=== PATIENT | female | born 1985 | race Caucasian/White ===

== ENCOUNTER → 2020-03-14 | Outpatient (CLI) | payer OTHER ==
[~2020-03-14] MED LIST: BIRTH CONTROL1 EAC1 PO; BUSPAR10 MG PO; CETIRIZINE HYDR10 MG PO; DESYREL100 MG PO; Depakote ER500 MG PO; EFFEXOR75 MG PO; IBUPROFEN; KEFLEX500 MG PO; MOTRIN800 MG PO; NAPROSYN500 MG PO; NEURONTIN400 MG PO; PRILOSEC40 MG PO; TOPIRAMATE50 MG PO; VENLAFAXINE; VISTARIL25 M1 PO; ZANAFLEX4 M1 PO; ZANTAC 150150 MG PO
== END | disposition home or self-care (01) ==
LOC: US 16:38
DX: Z33.1 Pregnant state, incidental (principal); Z3A.10 10 weeks gestation of pregnancy

== ENCOUNTER → 2020-03-26 | Outpatient (CLI) | payer OTHER | END | disposition home or self-care (01) | LOC: US 15:49 | DX: Z34.82 Encounter for supervision of other normal pregnancy, second trimester (principal); Z3A.00 Weeks of gestation of pregnancy not specified ==

== ENCOUNTER → 2020-04-11 | Outpatient (CLI) | payer OTHER | END | disposition home or self-care (01) | LOC: US 04-03 10:30 | DX: O02.1 Missed abortion (principal); R93.89 Abnormal findings on diagnostic imaging of other specified body structures ==